=== PATIENT | male | born 1990 | race Hispanic/Latino ===

== ENCOUNTER 2017-08-05 11:31 | Inpatient (IN) | payer OTHER ==
[2017-08-05 11:54] VITALS: BMI 30.7
--- NOTE | 2017-08-05 12:02 | ED PDOC ---
Arrival/HPI - General Chief Complaint: Psychiatric Evaluation Time Seen by Provider: 08/05/17 11:58 Historian: Patient - History of Present Illness Narrative History of Present Illness (Text): 08/05/17 11:59 27 y/o male, no significant pmh, psychiatric history including drug abuse, nkda , cailin from the [facility] for direct psychiatric admission for the bizzarre behavior. Pt. stated that he smoke marijuanna about 5 days ago, been unable to concentrate and focus, no homicidal or suicidal ideation, spoke to the psychiatric floor here and has a bed for him to have further psychiatric evaluation. Pt. is medically clear and stable for the transfer and admission. Pt. is here at the ER, calmed, no medical or new psychiatric complaints to me at this point. Pt. has no palpitation, no chest pain, no pleuritic pain, no it auditor or visual hallucinations. Past Medical History - Provider Review Nursing Documentation Reviewed: Yes - Infectious Disease Hx of Infectious Diseases: None - Psychiatric Hx Anxiety: Yes Hx Substance Use: Yes - Anesthesia Hx Anesthesia: No Family/Social History - Physician Review Nursing Documentation Reviewed: Yes Family/Social History: Unknown Family HX Smoking Status: Never Smoked Hx Alcohol Use: Yes Frequency of alcohol use: Socially Hx Substance Use: Yes Substance used: marijuana Allergies/Home Meds Allergies/Adverse Reactions: Allergies No Known Allergies Allergy (Verified 08/05/17 13:14) Home Medications: Home Meds Medication Instructions Recorded Confirmed No Known Home Med 08/05/17 08/05/17 Review of Systems - Review of Systems Constitutional: absent: Fatigue, Fevers Eyes: absent: Vision Changes ENT: absent: Hearing Changes Respiratory: absent: SOB, Cough Cardiovascular: absent: Chest Pain Gastrointestinal: absent: Abdominal Pain, Nausea, Vomiting Musculoskeletal: absent: Arthralgias, Back Pain Skin: absent: Rash, Pruritis Neurological: absent: Headache Psychiatric: absent: Anxiety, Depression Physical Exam Vital Signs Reviewed: Yes Vital Signs Temp Pulse Resp BP Pulse Ox 08/05/17 12:17 97.4 F L 78 14 124/76 99 Temperature: Afebrile Appearance: Positive for: Well-Appearing, Non-Toxic, Comfortable Pain Distress: None Mental Status: Positive for: Alert and Oriented X 3 - Systems Exam Head: Present: Atraumatic, Normocephalic Pupils: Present: PERRL Extroacular Muscles: Present: EOMI Conjunctiva: Present: Normal Mouth: Present: Moist Mucous Membranes Neck: Present: Normal Range of Motion Respiratory/Chest: Present: Clear to Auscultation, Good Air Exchange. No: Respiratory Distress, Accessory Muscle Use Cardiovascular: Present: Regular Rate and Rhythm, Normal S1, S2. No: Murmurs Abdomen: Present: Normal Bowel Sounds. No: Tenderness, Distention, Peritoneal Signs Back: Present: Normal Inspection Upper Extremity: Present: Normal Inspection. No: Cyanosis, Edema Lower Extremity: Present: Normal Inspection. No: Edema Neurological: Present: GCS=15, CN II-XII Intact, Speech Normal Skin: Present: Warm, Dry, Normal Color. No: Rashes Psychiatric: Present: Alert, Oriented x 3, Normal Insight, Normal Concentration Medical Decision Making ED Course and Treatment: 08/05/17 12:02 -Labs and transferred paper reviewed by me and DR. Li -EKG: Sinus Bradycardia @ 50 BPM, early repolarization on lead V2-V3, no ST elevation or depression, ekg is from the [facility] -pt. was medically clear and stable. -I spoke to the PES Anaise, discussed about the case/labs and stated that the accepting doctor is gonna be DR. Marybeth David as they are expecting the patient. -I discussed the case with Dr. Li and he will put in the admission order. - Medication Orders Current Medication Orders: Famotidine (Pepcid) 40 mg PO HS [facility] Last Admin: 08/06/17 23:22 Dose: Not Given Non-Admin Reason: Patient Refused Haloperidol (Haldol) 5 mg PO Q6H PRN; Protocol PRN Reason: Agitation Haloperidol Lactate (Haldol) 5 mg IM Q6 PRN; Protocol PRN Reason: Agitation Lorazepam (Ativan) 0.5 mg PO TID PRN; Protocol PRN Reason: Anxiety Last Admin: 08/05/17 17:14 Dose: 0.5 mg Re-Assess: Reassess Psych Meds Document 08/05/17 18:14 CV (Rec: 08/06/17 08:41 CV [id number]) Reassess Psych Med Effective Lorazepam (Ativan) 1 mg IM Q6H PRN; Protocol PRN Reason: Anxiety Quetiapine Fumarate (Seroquel) 50 mg PO HS MARLY PRN Reason: Protocol Last Admin: 08/06/17 23:22 Dose: Not Given Non-Admin Reason: Patient Refused Quetiapine Fumarate (Seroquel) 25 mg PO DAILY MARLY PRN Reason: Protocol Last Admin: 08/07/17 09:00 Dose: 25 mg Behavioural Document 08/07/17 09:00 CV (Rec: 08/07/17 09:00 CV [id number]) Maintenance Maintenance Dose Yes Nonmedicinal Nonmedicinal Interventions Therapeutic Communication Re-Assess: Reassess Psych Meds Document 08/07/17 10:00 CV (Rec: 08/07/17 13:02 CV [id number]) Reassess Psych Med Effective Zaleplon (Sonata) 5 mg PO HS PRN PRN Reason: Insomnia - PA / DISTILLERY MILLER / Resident Statement /DO has reviewed & agrees with the documentation as recorded. Disposition/Present on Arrival - Present on Arrival Any Indicators Present on Arrival: No History of DVT/PE: No History of Uncontrolled Diabetes: No Urinary Catheter: No History of Decub. Ulcer: No History Surgical Site Infection Following: None - Disposition Have Diagnosis and Disposition been Completed?: Yes Diagnosis: Bizarre behavior Disposition: HOSPITALIZED Disposition Time: 12:04 Patient Plan: Admission Patient Problems: Current Active Problems Problem Status Onset Bizarre behavior Acute Condition: STABLE
[2017-08-05 12:25] VITALS: O2SAT 99
--- NOTE | 2017-08-05 17:05 | PCM.PSYCH ---
Initial Psychiatric Evaluation - Initial Psychiatric Evaluation Type of Admission: Voluntary Legal Status: Capacity Chief Complaint (in patient's own words): "I am here because I smoked weed Tuesday night and have not been right since". Patient's Reaction to Hospitalization: Patient is a 27 year old white male transferred to [facility] ER for a psychiatric bed after being evaluated at [facility]. He had been having bizarre behavior and been unable to go to work since smoking pot 5 days ago. He was not suicidal or homicidal but was anxious with paranoia. History of Present Illness and Precipitating Events: Patient is a 27 year old white, , male who has no previous psych history and no significant drug history who became psychotic following smoking pot 5 days ago. Patient is seen in a common area of the unit. He is neatly dressed and groomed, has several piercings and constantly fidgets with his hair during the interview. He is (to his ) for the last 4 years, they have been together for 6 years prior to that. 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 His works realtime court reporter as a contractor. They have no financial issues. Patient denies any psychiatric history including suicide attempts. Patient is healthy, denies any ongoing medical issues. Patient denies any issues with alcohol, drinks occasionally, smoked pot 2x in his life. Has never used any other drugs and does not abuse caffeine or tobacco. Patient denies any legal history, denies access to guns. Social and Developmental History: Patient grew up in [place], he came from an intact family and is #2 of 2 siblings, he has an older sister. Indicates his childhood was "OK". His father was self employed, and his mother worked in retail. Father is still alive and they have a good relationship, Mother a few years ago of cancer. Patient did well in school, had regular education, had friends and took part in school activities. He graduated from high school and from [employer] with a bachelor's degree in multimedia.He and his decided to move here 5 months ago, both found jobs and they like it here. They have a good friend support system. He likes to play video games and travel. He also likes his job and is anxious to get back to it. Current Medications: Active Medications Generic Name Dose Route Start Last Admin Trade Name Freq PRN Reason Stop Dose Admin Haloperidol 5 mg 08/05/17 14:44 Haldol PO Q6H PRN Agitation Protocol Haloperidol Lactate 5 mg 08/05/17 14:44 Haldol IM Q6 PRN Agitation Protocol Lorazepam 0.5 mg 08/05/17 14:32 Ativan PO TID PRN Anxiety Protocol Lorazepam 1 mg 08/05/17 14:34 Ativan IM Q6H PRN Anxiety Protocol Quetiapine Fumarate 50 mg 08/05/17 22:00 Seroquel PO HS MARLY Protocol Quetiapine Fumarate 25 mg 08/06/17 08:00 Seroquel PO DAILY MARLY Protocol Zaleplon 5 mg 08/05/17 14:46 Sonata PO HS PRN Insomnia Past Psychiatric History - Past Psychiatric History Previous Treatment History: None History of Abuse: Denied History of ETOH/Drug Use: Patient denies any past or current drug history. He occasionally drinks alcohol , has smoked pot 2x in his life. History of Family Illness: Denied Pertinent Medical Hx (Current Medical&Sleep Prob, Allergies): Allergies Allergy/AdvReac Type Severity Reaction Status Date / Time No Known Allergies Allergy Verified 08/05/17 13:14 No Known Home Med 08/05/17 Review of Systems - EENT Eyes: As Per HPI Ears: As Per HPI Nose/Mouth/Throat: As Per HPI - Cardiovascular Cardiovascular: As Per HPI - Respiratory Respiratory: As Per HPI - Gastrointestinal Gastrointestinal: As Per HPI - Genitourinary Genitourinary: As Per HPI - Psychiatric Psychiatric: As Per HPI - Endocrine Endocrine: As Per HPI - Hematologic/Lymphatic Hematologic: As Per HPI Mental Status Examination - Personal Presentation Personal Presentation: Looks younger than stated age - Affect Affect: Constricted - Motor Activity Motor Activity: Calm - Reliability in Providing Information Reliability in Providing Information: Fair Additional comments: Patient is struggling with non-specific paranoia, am unsure if he is filtering or is being vigilant. He constantly figets with his hair and appears preoccupied looking around and starting at noises. - Speech Speech: Organized - Mood Mood: Anxious - Formal Thought Process Formal Thought Process: Paranoia - Hallucinations/Delusions Additional comments: Patient denies the presence of hallucinations or delusions. - Obsessions/Compulsions Obsessions: None Compulsions: None - Cognitive Functions Orientation: Person, Place, Situation, Time Sensorium: Alert Attention/Concentration: Easily distracted Estimate of Intelligence: Above Average Judgement: Imparied, as evidence by: Poor judgement - Strength & Assets Inventory Strength & Assets Inventory: Intelligence, Family support, Employment status, Cooperative DSM 5 DX - DSM 5 DSM 5 Diagnosis: Drug induced psychosis - Recommended/Plan of Treatment Treatment Recommendations and Plan of Treatment: Treatment plan: Milieu/structure/supportive therapy Medical consult appreciated, see medical team note for more detailed info SW consultation for discharge plan and social issues Med management Family involvement Follow up on labs Will monitor closely SW evaluation for d/c planning Pt was educated about risk/benefits and alternatives of medications, coping strategies (safety plan, suicide prevention), relapse prevention, importance of follow up with psychiatrist and therapist, stay away from drugs/alcohol/smoking Due to patient's initial presentation, SW will seek collateral information from patient's . Medication Rational: Seroquel 25mg AM and Seroquel 50mg HS for psychosis Ativan 0.5mg q8h prn anxiety Sonata 5mg at bedtime prn for sleep PRN medications Haldol and Ativan for agitation Projected ELOS: 08/12/2017 Prognosis: Fair Discharge Plan and Discharge Criteria: Patient will no longer be psychotic, patient will have follow up treatment, patient will be well enough to return to work. - Smoking Cessation Smoking Cessation Initiated: No Reason for not providing: Patient not a smoker
--- NOTE | 2017-08-06 00:09 | PCM.BM ---
<Rufino Oliveros - Last Filed: 08/06/17 00:06> Treatment Plan Problems - Problems identified on initial assessmt Anxiety Related to Substance Use Date Initiated: 08/06/17 Time Initiated: 00:08 Assessment reference: NA Status: Active Ineffective Family Coping: Compromised Date Initiated: 08/06/17 Time Initiated: 00:09 Assessment reference: NA Status: Active Medication nonadherence Date Initiated: 08/06/17 Time Initiated: 00:09 Assessment reference: NA Status: Active Treatment assets and liabiliti Patient Assests: adapts well, educated, resourceful, physically healthy, negotiates basic needs, financial stabiity Patient Liabilities: relationship conflicts, substance abuse - Milieu Protocol Maintain good personal hygiene: daily Encourage regular showers, daily Remind patient to perform daily oral care, daily Assist patient to perform ADL's Conduct patient checks and document Observation sheet: Q15 minutes Maintain personal safety: every shift Educate patient to report safety concerns to staff, every shift Monitor environment for contraband/sharps Medication safety: Monitor for expected outcome, potential side effects: every shift, Assess barriers to learning: every shift, Assess readiness for medication education: every shift Milieu Narrative: Treatment plan: Milieu/structure/supportive therapy Medical consult appreciated, see medical team note for more detailed info SW consultation for discharge plan and social issues Med management Family involvement Follow up on labs Will monitor closely SW evaluation for d/c planning Pt was educated about risk/benefits and alternatives of medications, coping strategies (safety plan, suicide prevention), relapse prevention, importance of follow up with psychiatrist and therapist, stay away from drugs/alcohol/smoking Due to patient's initial presentation, SW will seek collateral information from patient's . Medication Rational: Seroquel 25mg AM and Seroquel 50mg HS for psychosis Ativan 0.5mg q8h prn anxiety Sonata 5mg at bedtime prn for sleep PRN medications Haldol and Ativan for agitation Discharge/Continuing Care - Education Needs Education Needs: Patient Medication, Patient Diagnosis/Disease Process, Patient Coping Skills, Patient Community resources, Patient Activities of Daily Living, Patient Nutrition, Patient Health Practices/Safety, Patient Personal Hygiene/ Grooming, Patient Aftercare Safety Plan - Discharge Discharge Criteria: Tolerates medication w/o severe side effects, Free of Suicidal thoughts, Free of Homicidal thoughts, Free of paranoid thoughts, Free of agitation, Normal sleep pattern, Ability to care for self - Treatment Team Participation Patient/Family/SO Statement: Treatment plan: Milieu/structure/supportive therapy Medical consult appreciated, see medical team note for more detailed info SW consultation for discharge plan and social issues Med management Family involvement Follow up on labs Will monitor closely SW evaluation for d/c planning Pt was educated about risk/benefits and alternatives of medications, coping strategies (safety plan, suicide prevention), relapse prevention, importance of follow up with psychiatrist and therapist, stay away from drugs/alcohol/smoking Due to patient's initial presentation, SW will seek collateral information from patient's . Medication Rational: Seroquel 25mg AM and Seroquel 50mg HS for psychosis Ativan 0.5mg q8h prn anxiety Sonata 5mg at bedtime prn for sleep PRN medications Haldol and Ativan for agitation <Reina Bonilla Y - Last Filed: 08/09/17 08:17> Family Contact Family involvement: Family/SO is involved Family contact: Patient agrees to contact Family contact name: Fernie Carr() Family contacted how many times per week?: 2
--- NOTE | 2017-08-06 01:24 | HP ---
CHIEF COMPLAINT: Psych evaluation, cannot sleep at night, anxiety. HISTORY OF PRESENT ILLNESS: Mr. Lexx Workman is a 27-year-old male with no significant past medical history, no psych history, no drug abuse. He came from [facility] for direct psychiatric admission for the bizarre behavior. The patient stated that he smoked marijuana about 5 days ago, been unable to concentrate and focus. No homicidal or suicidal ideation. I spoke to the psychiatric follower here and has a bed for him to have further psychiatric evaluation from the ER. I saw the patient on the floor of behavioral health department. The patient's and sister was sitting on the bedside. The patient looks anxious, complaining about cannot sleep at night. No fever, no chills. No hematuria or hematochezia, sometimes feeling gassy stomach. PAST MEDICAL HISTORY: Not significant. FAMILY HISTORY: Father and mother noncontributory. HABITS: Never smoked. Alcohol - yes, socially. Substance abuse - yes, marijuana. ALLERGIES: THE PATIENT IS NOT ALLERGIC TO ANY MEDICATIONS. HOME MEDICATIONS: Reviewed. REVIEW OF SYSTEMS: Patient was seen and examined on the bedside in the Psych department. Sister and are sitting on the bedside. Looking anxious. No fever, no chills. No nausea, vomiting or diarrhea No hematuria or hematochezia. No swelling of the leg. No chest pain, no palpitations. No headache or dizziness. PHYSICAL EXAMINATION: VITAL SIGNS: Temperature 97.4, pulse 78, blood pressure 124/76, respiratory rate 14. HEENT: Head normocephalic, atraumatic. Eyes, PERRLA. Extraocular movements intact. Conjunctivae clear. Nose patent. Mucous membrane moist. NECK: Supple, no carotid bruit. No JVD or thyromegaly. CHEST: Bilaterally symmetrical. HEART: S1 and S2 positive. LUNGS: Clear to auscultation. ABDOMEN: Soft, bowel sounds positive. No organomegaly. EXTREMITIES: No edema, no cyanosis. NEUROLOGICAL: The patient is awake, alert. Moving all 4 extremities. No focal deficits. LABORATORY DATA: We do not have recent labs today, but reviewed old labs. Labs are on the transfer paper. EKG shows sinus bradycardia. ASSESSMENT AND PLAN: Insomnia, gastroesophageal reflux disease, dyspepsia, bizarre behavior. No homicidal or suicidal ideation. The patient is given Ativan, Haldol, Seroquel, Sonata. We will repeat labs. GI and DVT prophylaxis. We will follow up. Denise Wiggins MD
[2017-08-06 07:23] LABS: HEMOGLOBIN 15.4 g/dL (14.0-18.0); MEAN CORPUSCULAR HEMOGLOBIN 29.8 pg (25.0-35.0); MEAN CORPUSCULAR HGB CONC 34.3 g/dl (31.0-37.0); MEAN PLATELET VOLUME 9.7 fl (7.0-11.0); RBC 5.16 10^6/uL (3.5-6.1); RED CELL DISTRIBUTION WIDTH 12.9 % (11.5-14.5); WHITE BLOOD COUNT 5.9 10^3/ul (4.5-11.0)
[2017-08-06 07:58] LABS: FREE T4 1.51 ng/dL (0.78-2.19)
[2017-08-06 08:18] LABS: BLOOD UREA NITROGEN 14 mg/dL (7-21); CALCIUM 9.8 mg/dL (8.4-10.5); GFR AFRICAN-AMERICAN > 60; GFR NON-AFRICAN AMERICAN > 60; GLUCOSE,FASTING 78 mg/dL (65-110); HDL CHOLESTEROL 40 mg/dL (29-60)
[2017-08-06 08:29] LABS: LDL CHOLESTEROL 113 mg/dL (0-129)
--- NOTE | 2017-08-06 09:44 | PCM.PYCHPN ---
Psychiatric Progress Note - Psychiatric Progress Note Patient seen today, length of contact: 25 MIN Patient Chief Complaint: "fine" Problems Identified/Issues Discussed: I reviewed assessment and recent notes. Patient was interviewed at bedside. He is cooperative with questioning and oriented x3. Grooming is fair. Patient reports that he is "fine". Affect is neutral. Reports that anxiety pill helped a lot. He denies hallucinations or any new concerns. He slept well last night. Staff notes indicate patient has been anxious. He generally keeps to himself, in his room. He is compliant with medications. There were no behavioral issues overnight. Diagnostic Results: Drug induced psychosis Mental Status Examination - Cognitive Function Orientation: Person, Place, Situation, Time - Mood Mood: Anxious ("the anxiety pill helped a lot") - Affect Affect: Constricted (More neutral today) - Formal Thought Process Formal Thought Process: Paranoia (denies) - Suicidal Ideation Suicidal Ideation: No - Homicidal Ideation Homicidal Ideation: No Goal/Treatment Plan - Goal/Treatment Plan Progress Toward Problem(s) and Goals/Treatment Plan: c/w current tx and plan No new weekend labs thus far Vitals reviewed and noted below: Selected Entries 08/05/17 12:17 Temperature 97.4 F L Pulse Rate 78 Respiratory 14 Rate Blood Pressure 124/76 O2 Sat by Pulse 99 Oximetry
--- NOTE | 2017-08-06 23:50 | PN ---
DATE: SUBJECTIVE: Patient is a 27-year-old male. Patient is seen and examined at the bedside, looking comfortable. According to him, he had good last night sleep. No nausea, vomiting or diarrhea. No hematuria. No hematochezia. No swelling of the legs. No chest pain. No palpitation. No headache. No dizziness. Sometimes, feeling like gassy. Do not have bowel movements. PHYSICAL EXAMINATION VITAL SIGNS: Temperature 98, pulse 90, blood pressure 120/80 , respiratory rate 18. HEENT: Head: Normocephalic, atraumatic. Eyes: PERRLA. Extraocular muscles intact. Conjunctivae clear. Nose: Patent. Mucous membranes moist. NECK: Supple. No carotid bruit, JVD or thyromegaly. CHEST: Bilaterally symmetrical. HEART: S1 and S2 positive. LUNGS: Clear to auscultation. ABDOMEN: Soft. Bowel sounds present. No organomegaly. EXTREMITIES: No edema. No cyanosis. NEUROLOGICAL: Patient is awake and alert. Moving all 4 extremities. No focal deficits. MEDICATIONS: Ativan, Haldol, Pepcid, Seroquel, Sonata. LABORATORY DATA: RPR is non-reactive. White blood cells 5.9, hemoglobin 15.4, hematocrit 44.9, platelet 221. Sodium 141, potassium 4.1, BUN 14, creatinine 1.0, TSH 0.18. ASSESSMENT AND PLAN: Mr. Ji Hallman is a 27-year-old male, rule out hyperthyroidism, constipation, gastroesophageal reflux disease, dyspepsia, is admitted in [facility] Psych Department for depression and anxiety. No hallucination or delusions. Drug induced psychosis, getting treatment, repeat labs. GI and deep venous thrombosis prophylaxis. Medically, patient is doing good. He do not need medical followup. I will sign out the case, but in case, if you want me to do further or some change of status will happen, please let me know, I will have to help your patient. Appreciated your consult. Denise Wiggins MD MTDTracie
[2017-08-07 07:45] VITALS: RESP 20
--- NOTE | 2017-08-07 09:39 | PCM.PYCHPN ---
Psychiatric Progress Note - Psychiatric Progress Note Patient seen today, length of contact: 25 MIN Patient Chief Complaint: "fine" Problems Identified/Issues Discussed: I reviewed recent notes. Patient was interviewed at bedside. He is cooperative with questioning and oriented x3. Grooming is fair. Patient reports that he is "fine". Affect is neutral and patient reports anxiety is under control. He denies hallucinations or any new concerns. Staff notes indicate patient generally keeps to himself. He is compliant with medications however refused Seroquel 50 mg last night. He didn't require sonata to sleep well overnight. There were no behavioral issues over the weekend Patient signed 48 hrs at 3:20 pm on 08/06/17. Patient reports that he is feeling better and "just wants to sleep in my bed again". Diagnostic Results: Drug induced psychosis Mental Status Examination - Cognitive Function Orientation: Person, Place, Situation, Time Attention: WNL Concentration: WNL Association: WNL Fund of Knowledge: WNL - Mood Mood: Anxious ("the anxiety pill helped a lot") - Affect Affect: Constricted (More reactive) - Formal Thought Process Formal Thought Process: No Impairment, Paranoia (improved) - Suicidal Ideation Suicidal Ideation: No - Homicidal Ideation Homicidal Ideation: No Goal/Treatment Plan - Goal/Treatment Plan Progress Toward Problem(s) and Goals/Treatment Plan: c/w current tx and plan Appreciate f/u by Dr. Wiggins on 08/06/17~signed off case Patient signed 48 hrs at 3:20 pm on 08/06/17. Patient reports that he is feeling better and "just wants to sleep in my bed again". Patient has been in good control without evidence of overt thought disorder. And doesn't appear to be a danger to himself or others. Vitals reviewed and noted below: 08/07/17 07:44 Temperature 98.0 F Pulse Rate 84 Respiratory 20 Rate Blood Pressure 113/71 New weekend labs noted below: 08/06/17 08/06/17 08/06/17 07:00 07:00 07:00 WBC RBC Hgb Hct MCV MCH MCHC RDW Plt Count MPV Sodium 141 Potassium 4.1 Chloride 102 Carbon Dioxide 24 Anion Gap 19 BUN 14 Creatinine 1.0 Est GFR (Non-Af Amer) > 60 Random Glucose 78 Fasting Glucose 78 Hemoglobin A1c 5.1 Calcium 9.8 Triglycerides 103 Cholesterol 182 LDL Cholesterol Direct 113 HDL Cholesterol 40 Free T4 1.51 TSH 3rd Generation 0.18 L RPR 08/06/17 08/06/17 07:00 07:00 WBC 5.9 RBC 5.16 Hgb 15.4 Hct 44.9 MCV 87.0 MCH 29.8 MCHC 34.3 RDW 12.9 Plt Count 221 MPV 9.7 Sodium Potassium Chloride Carbon Dioxide Anion Gap BUN Creatinine Est GFR (Non-Af Amer) Random Glucose Fasting Glucose Hemoglobin A1c Calcium Triglycerides Cholesterol LDL Cholesterol Direct HDL Cholesterol Free T4 TSH 3rd Generation RPR Nonreactive
[2017-08-08 07:30] VITALS: BP 105/65; PULSE 81; TEMP 98.1
--- NOTE | 2017-08-08 11:23 | PCM.PYCHDC ---
Mental Status Examination - Mental Status Examination Orientation: Person, Place, Situation, Time Memory: Intact Mood: Neutral Affect: Constricted Speech: Appropriate Attention: WNL Concentration: WNL Association: WNL Fund of Knowledge: WNL Formal Thought Process: No Impairment Description of patient's judgement and insight: Patient denies being suicidal or homicidal, appears in no imminent danger of hurting himself or others. Psychotic Thoughts and Behaviors: Patient denies the presence of hallucinations, delusions, or paranoia, indicates he no longer is paranoid. Suicidal Ideation: No Current Homicidal Ideation?: No Discharge Summary - Discharge Note Reason for Hospitalization: Patient is a 27 year old white male transferred to [facility] for a psychiatric bed after being evaluated at [facility]. He had been having bizarre behavior and been unable to go to work since smoking pot 5 days ago. He was not suicidal or homicidal but was anxious with paranoia. Laboratory Data: Laboratory Tests 08/06/17 08/06/17 08/06/17 07:00 07:00 07:00 WBC RBC Hgb Hct MCV MCH MCHC RDW Plt Count MPV Sodium 141 Potassium 4.1 Chloride 102 Carbon Dioxide 24 Anion Gap 19 BUN 14 Creatinine 1.0 Est GFR ( Amer) > 60 Est GFR (Non-Af Amer) > 60 Random Glucose 78 Fasting Glucose 78 Hemoglobin A1c 5.1 Calcium 9.8 Triglycerides 103 Cholesterol 182 LDL Cholesterol Direct 113 HDL Cholesterol 40 Free T4 1.51 TSH 3rd Generation 0.18 L RPR 08/06/17 08/06/17 07:00 07:00 WBC 5.9 RBC 5.16 Hgb 15.4 Hct 44.9 MCV 87.0 MCH 29.8 MCHC 34.3 RDW 12.9 Plt Count 221 MPV 9.7 Sodium Potassium Chloride Carbon Dioxide Anion Gap BUN Creatinine Est GFR ( Amer) Est GFR (Non-Af Amer) Random Glucose Fasting Glucose Hemoglobin A1c Calcium Triglycerides Cholesterol LDL Cholesterol Direct HDL Cholesterol Free T4 TSH 3rd Generation RPR Nonreactive Temp Pulse Resp BP Pulse Ox 98.1 F 81 20 105/65 99 08/08/17 07:29 08/08/17 07:29 08/08/17 07:29 08/08/17 07:29 08/05/17 12:17 Consultations:: List each consultation separately and include: 1. Reason for request. 2. Findings. 3. Follow-up Summary of Hospital Course include:: 1. Description of specific treatment plan utilized for patients during their course of treatmen. 2. Summarize the time- course for resolution of acute symptoms and/or regressed behaviors. 3. Describe issues identified and worked on during hospitalization. 4. Describe medication utilized. 5. Describe medical problems identified and treated. 6. Reassessment of suicide risk Summary of Hospital Course: Patient is a 27 year old white, , male who has no previous psych history and no significant drug history who became psychotic following smoking pot 5 days ago. Patient is seen in a common area of the unit. He is neatly dressed and groomed, has several piercings and constantly fidgets with his hair during the interview. He is (to his ) for the last 4 years, they have been together for 6 years prior to that. 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 His works full service supervisor as a contractor. They have no financial issues. Patient denies any psychiatric history including suicide attempts. Patient is healthy, denies any ongoing medical issues. Patient denies any issues with alcohol, drinks occasionally, smoked pot 2x in his life. Has never used any other drugs and does not abuse caffeine or tobacco. Patient denies any legal history, denies access to guns. Social and Developmental History: Patient grew up in [place], he came from an intact family and is #2 of 2 siblings, he has an older sister. Indicates his childhood was "OK". His father was self employed, and his mother worked in retail. Father is still alive and they have a good relationship, Mother a few years ago of cancer. Patient did well in school, had regular education, had friends and took part in school activities. He graduated from high school and from [employer] with a bachelor's degree in multimedia.He and his decided to move here 5 months ago, both found jobs and they like it here. They have a good friend support system. He likes to play video games and travel. He also likes his job and is anxious to get back to it. Patient was compliant unit routines, was started on seroquel 50mg at bedtime and seroquel 25mg in AM. He is complaining of sedation so this was reduced to 25mg HS only at discharge. Patient's paranoia has cleared, he has signed 48 hour notice, agrees to rescind this and be discharged this AM. He wants referral for followups, says he has a history of ADHD and was on meds for this in the past is seeking this with outpatient treatment. Patient given referrals for telepsychiatry [facility], also [facility] and [facility] for follow up. Patient denies any current symptoms is not suicidal or homicidal and appears in no imminent danger of hurting himself or others. He indicates that he feels he is at baseline. - Final Diagnosis (DSM 5) Condition upon Discharge: STABLE DSM 5: Drug Induced Psychosis Disposition: HOME/ ROUTINE Follow-up Treatment Plan: Treatment plan: Milieu/structure/supportive therapy Medical consult appreciated, see medical team note for more detailed info SW consultation for discharge plan and social issues Med management Family involvement Follow up on labs Will monitor closely SW evaluation for d/c planning Pt was educated about risk/benefits and alternatives of medications, coping strategies (safety plan, suicide prevention), relapse prevention, importance of follow up with psychiatrist and therapist, stay away from drugs/alcohol/smoking Due to patient's initial presentation, SW will seek collateral information from patient's . Medication Rational: Seroquel 25mg AM and Seroquel 50mg HS for psychosis Ativan 0.5mg q8h prn anxiety Sonata 5mg at bedtime prn for sleep PRN medications Haldol and Ativan for agitation Prescriptions/Medication Reconciliation: QUEtiapine [Seroquel] 25 mg PO HS #14 tab - Smoking Cessation Smoking Cessation Medication prescribed: No Reason for not providing: Patient not a smoker - Antipsychotic Medications Pt discharged on 2 or more routine antipsychotic medications: No
== END 2017-08-08 13:14 | disposition home or self-care (01) | DRG 897 ==
LOC: ED 11:31 → ERH 12:17 → PSYC 13:10
PROVIDERS: ADMIT Psychiatry & Neurology Psychiatry; ATTEND Psychiatry & Neurology Psychiatry
DX: F12.959 Cannabis use, unspecified with psychotic disorder, unspecified (principal); F22 Delusional disorders; F41.9 Anxiety disorder, unspecified; F90.9 Attention-deficit hyperactivity disorder, unspecified type; G47.00 Insomnia, unspecified; K21.9 Gastro-esophageal reflux disease without esophagitis